=== PATIENT | female | born 1960 | race American Indian/Alaskan Native ===

== ENCOUNTER 2020-06-27 14:48 | Outpatient (CLI) | payer BC ==
--- NOTE | 2020-06-27 17:34 | Magnetic Resonance Report ---
Bilateral breast MRI with and without contrast. History: Family history of breast cancer Procedure: Axial T1 and T2-weighted fat-sat images were obtained precontrast. 16 cc Clariscan was in jected intravenously and serial axial T1-weighted images with fat saturation were obtained postcontra st. 3-D MIP projections, Kinetic analysis and subtraction imaging was utilized to evaluate. [facility] breast coil was utilized for image acquisition. Comparison: None Findings: Background level of enhancement is mild. No suspicious axillary or clavicular nodes are identified. No abnormal bone marrow signal is seen. No significant chest wall enhancement is noted. Right breast: Mild stippled enhancement is seen. There appears to be a tiny intramammary lymph node. No suspicious lesions are noted. Left breast: Mild stippled enhancement is seen. There appears to be a tiny intramammary lymph node. N o suspicious lesions are noted. Impression: No suspicious lesions are seen BIRADS: 2: Benign Signer Name: Matteo Dowling MD Signed: 06/27/2020 5:29 PM Workstation Name: [id number]
== END 2020-06-27 14:49 | disposition home or self-care (01) ==
LOC: SPVIMAG 14:48
PROVIDERS: ATTEND Surgery
DX: N63.20 Unspecified lump in the left breast, unspecified quadrant (principal); N63.10 Unspecified lump in the right breast, unspecified quadrant; Z80.3 Family history of malignant neoplasm of breast; Z80.41 Family history of malignant neoplasm of ovary
CPT/HCPCS: A9575; C8908; 77049

== ENCOUNTER 2021-05-22 09:20 | Emergency (ER) | payer SELFPAY ==
[2021-05-22 09:40] VITALS: BP 142/88
[2021-05-22] MEDS ORDERED: ACETAMINOPHEN 325 MG TAB PO ONE (10:19)
[2021-05-22] MEDS ORDERED: KETOROLAC 30 MG/1 ML INJ IM ONE (10:19)
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
--- NOTE | 2021-05-22 11:25 | XRay Report ---
Lumbar spine 3 views INDICATION: Back pain FINDINGS: Endplate degenerative change and facet degenerative changes seen throughout. No subluxation . No compression fractures identified. Signer Name: Shawn Chavez MD Signed: 05/22/2021 11:20 AM Workstation Name: [id number]
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
== END 2021-05-22 13:21 | disposition home or self-care (01) ==
LOC: ED 09:20
DX: M54.9 Dorsalgia, unspecified (principal); M54.2 Cervicalgia; V89.2XXA Person injured in unspecified motor-vehicle accident, traffic, initial encounter; Y93.89 Activity, other specified; Y92.89 Other specified places as the place of occurrence of the external cause; Y99.8 Other external cause status
CPT/HCPCS: 72070; 72100; 96372; 99283; J1885